=== PATIENT | female | born 1965 | race Caucasian/White ===

== ENCOUNTER 2019-08-20 23:34 | Emergency (ER) | payer OTHER ==
[~2019-08-20] VITALS: Ht 162.6 cm; Wt 58.0 kg
[2019-08-20 23:37] VITALS: BP 166/99
--- NOTE | 2019-08-21 00:46 | NUR ---
RLQ PAIN/RIGHT FLANK PAIN INTERMITTANT X2 DAYS, LEFT MIDDLE FINGER NUMBNESS X1/5 YEARS. HX DIVERTICULOSIS/DIVERTICULITIES. +NAUSEA, -VOMITTING.
[2019-08-21 01:22] LABS: MICROSCOPIC NOT IND
[2019-08-21] MEDS ORDERED: KETOROLAC 60 MG/2 ML IM ONE (01:30)
[2019-08-21] MEDS ORDERED: METHOCARBAMOL 500 MG TABLET PO ONE (01:30)
[2019-08-21 01:35] LABS: CULTURE INDICATED? NO
[2019-08-21] MEDS ORDERED: METHOCARBAMOL 500 MG TABLET ONE (01:47)
[2019-08-21] MEDS ORDERED: KETOROLAC 60 MG/2 ML ONE (01:47)
== END 2019-08-21 01:47 | disposition home or self-care (01) ==
LOC: ED 08-21 01:15
DX: S39.012A Strain of muscle, fascia and tendon of lower back, initial encounter (principal); E03.9 Hypothyroidism, unspecified; F17.210 Nicotine dependence, cigarettes, uncomplicated; X58.XXXA Exposure to other specified factors, initial encounter; Y93.89 Activity, other specified; Y92.89 Other specified places as the place of occurrence of the external cause; Y99.8 Other external cause status
CPT/HCPCS: 81003; 96372; 99283; 99406; J1885